=== PATIENT | male | born 1940 | race Caucasian/White ===

== ENCOUNTER → 2017-01-25 | Outpatient (CLI) | payer OTHER, MEDICARE ==
[~2017-01-25] MED LIST: ASPEC81 PO; ATOR-26 PO; CHOL100010 PO; CRG25 PO; FINA5TAB PO; FURO80TA63 PO; INSUINJ4 SC; ISOS30TA3 PO; LISI-729 PO; NTRGSL/4 UT; NVLGI SC; POTA-335 PO; WARF5TAB7 PO
[2017-01-25 17:52] LABS: ALT/SGPT 17 U/L (12-78); BLOOD UREA NITROGEN 24 mg/dl (7-18); BUN/CREATININE RATIO 17.4 (10-20); CALCIUM 8.7 mg/dl (8.5-10.1); CARBON DIOXIDE 22 mmol/L (21-32); CHLORIDE 106 mmol/L (98-107); GLUCOSE 211 mg/dl (70-99); POTASSIUM 4.1 mmol/L (3.5-5.1); SODIUM 138 mmol/L (136-145)
[2017-01-25 17:55] LABS: ALB/GLOB RATIO 0.9 (0.9-2); ALKALINE PHOSPHATASE 110 U/L (45-117); AST/SGOT 13 U/L (15-37)
[2017-01-26 06:05] LABS: ESTIMATED AVERAGE GLUCOSE 177 mg/dl; HA1C FLAG Normal (Normal)
== END | disposition home or self-care (01) ==
LOC: C.LABPVFM 11:38
PROVIDERS: ATTEND Family Medicine
DX: N18.3 Chronic kidney disease, stage 3 (moderate) (principal); E21.3 Hyperparathyroidism, unspecified; E11.29 Type 2 diabetes mellitus with other diabetic kidney complication; I48.2 Chronic atrial fibrillation; E11.22 Type 2 diabetes mellitus with diabetic chronic kidney disease

== ENCOUNTER → 2017-05-06 | Outpatient (CLI) | payer OTHER, MEDICARE ==
[2017-05-06 13:40] LABS: ESTIMATED AVERAGE GLUCOSE 169 mg/dl; HA1C FLAG Normal (Normal)
[2017-05-06 13:52] LABS: ALT/SGPT 18 U/L (12-78); BLOOD UREA NITROGEN 27 mg/dl (7-18); BUN/CREATININE RATIO 17.9 (10-20); CARBON DIOXIDE 25 mmol/L (21-32); CHLORIDE 109 mmol/L (98-107); GLUCOSE 147 mg/dl (70-99); POTASSIUM 4.2 mmol/L (3.5-5.1); SODIUM 143 mmol/L (136-145)
[2017-05-06 13:53] LABS: ALB/GLOB RATIO 0.9 (0.9-2); ALKALINE PHOSPHATASE 105 U/L (45-117); AST/SGOT 14 U/L (15-37)
[2017-05-06 14:52] LABS: CALCIUM 9.1 mg/dl (8.5-10.1)
== END | disposition home or self-care (01) ==
LOC: C.LABPVFM 13:48
PROVIDERS: ATTEND Family Medicine
DX: I12.9 Hypertensive chronic kidney disease with stage 1 through stage 4 chronic kidney disease, or unspecified chronic kidney disease (principal); E78.5 Hyperlipidemia, unspecified; E11.9 Type 2 diabetes mellitus without complications; I48.2 Chronic atrial fibrillation; N18.9 Chronic kidney disease, unspecified; E21.3 Hyperparathyroidism, unspecified

== ENCOUNTER → 2017-11-01 | Outpatient (CLI) | payer OTHER, MEDICARE ==
[2017-11-01 17:59] LABS: ALT/SGPT 19 U/L (12-78); BLOOD UREA NITROGEN 31 mg/dl (7-18); CALCIUM 8.6 mg/dl (8.5-10.1); CARBON DIOXIDE 27 mmol/L (21-32); CHLORIDE 108 mmol/L (98-107); GLUCOSE 137 mg/dl (70-99); POTASSIUM 4.3 mmol/L (3.5-5.1); SODIUM 139 mmol/L (136-145)
[2017-11-01 18:01] LABS: ALB/GLOB RATIO 0.9 (0.9-2); ALKALINE PHOSPHATASE 107 U/L (45-117); AST/SGOT 9 U/L (15-37)
[2017-11-02 06:08] LABS: ESTIMATED AVERAGE GLUCOSE 163 mg/dl; HA1C FLAG Normal (Normal)
== END | disposition home or self-care (01) ==
LOC: C.LABPVFM 12:30
PROVIDERS: ATTEND Nurse Practitioner Adult Health
DX: I10 Essential (primary) hypertension (principal); N18.3 Chronic kidney disease, stage 3 (moderate); R80.9 Proteinuria, unspecified; E11.29 Type 2 diabetes mellitus with other diabetic kidney complication; E78.5 Hyperlipidemia, unspecified; I50.9 Heart failure, unspecified; I25.5 Ischemic cardiomyopathy

== ENCOUNTER → 2018-03-20 | Outpatient (CLI) | payer OTHER, MEDICARE ==
[2018-03-20 13:31] LABS: ALBUMIN 3.7 gm/dl (3.4-5.0); ALT/SGPT 19 U/L (12-78); AST/SGOT 12 U/L (15-37); BLOOD UREA NITROGEN 24 mg/dl (7-18); CALCIUM 8.7 mg/dl (8.5-10.1); CARBON DIOXIDE 24 mmol/L (21-32); CREATININE 1.32 mg/dl (0.60-1.40); GLUCOSE 117 mg/dl (70-99); POTASSIUM 4.1 mmol/L (3.5-5.1); SODIUM 141 mmol/L (136-145)
[2018-03-20 13:32] LABS: HEMOGLOBIN A1C 7.1 % (4.5-5.6)
[2018-03-20 13:34] LABS: ALKALINE PHOSPHATASE 108 U/L (45-117); TOTAL PROTEIN 7.6 gm/dl (6.4-8.2)
== END ==
LOC: C.LABPVFM 18:01
PROVIDERS: ATTEND Family Medicine
DX: E78.5 Hyperlipidemia, unspecified (principal); I50.9 Heart failure, unspecified; I48.2 Chronic atrial fibrillation; N18.3 Chronic kidney disease, stage 3 (moderate); E11.29 Type 2 diabetes mellitus with other diabetic kidney complication; E21.3 Hyperparathyroidism, unspecified

== ENCOUNTER 2024-02-29 12:00 | Observation (INO) ==
--- NOTE | 2024-02-29 12:23 | Emergency Department Note ---
Impression & Plan Gout flare, Pacemaker, Right leg pain, Ambulatory dysfunction ED Provider Note NAME: MARNIE TOWNSEND AGE: 83 SEX: M : 1940 ARRIVES VIA: Ambulance INFORMANT: Patient, ED PROVIDER(S): Grupo Mack MD CHIEF COMPLAINT: Leg swelling, foot pain MEDICAL DECISION MAKING: Patient presents due to concern for leg swelling foot pain. IV was established and blood was obtained along with a right foot x-ray and right DVT ultrasound. The patient was ordered pain medication procalcitonin ESR CRP and uric acid also ordered. The patient's blood work showed a normal white count with anemia normal platelet count kidney function unremarkable BSG of 333 CRP and ESR elevated uric acid not elevated. Patient's foot x-ray does not show obvious fracture or dislocation. The patient did receive IV morphine which improved his symptoms and was able to range his foot better. Patient was up for an ambulatory trial but was unsuccessful with ambulation. Given this concern I did speak the on-call hospitalist Sascha Wan PA-C and the patient was admitted by Dr. Ko. Patient does have likely gout. Patient's white count and Pro-Ernesto are normal will defer any antibiotics at this time. DVT ultrasound is negative. Discussion w/ other healthcare providers: Sascha Owens PA-C and Dr. Ko Prior /Outside records reviewed: I reviewed a diabetes visit from January 11, 2024 with Kiarra Sandoval patient reportedly had a change from his sensor to doing fingerstick checks. I did review a wellness visit from Dr. Taveras. Patient with a known history of stable chest pain. Patient also with a history of reflux prostate cancer has been on chemo and radiation in the past. Weight is down 33 pounds since May likely secondary to cancer treatments. History of A-fib. Review of the patient's medication list shows that the patient does take the epigastrium patient is on Aldactone Differential diagnosis: Fracture, sprain, strain, subluxation, dislocation, contusion, ligamentous injury, neurovascular, as well as other etiologies were considered. Diagnostics, as interpreted by me: ECG: V paced rhythm rate of 82 wide QRS. Cardiac monitoring: An order was placed for continuous cardiac monitoring. The monitor shows a rate of 85 with paced rhythm. Patient was placed on pulse oximetry Medical decision rules: None Imaging studies: I informally interpreted the patient's foot x-ray does not show obvious fracture or dislocation with formal report to follow. HPI: Patient presents due to concern for right foot pain as well as leg swelling. Patient prefaces the visit today with several weeks ago he was diagnosed with gout and started on medication. The patient has had worsening symptoms ever since the morning to where he can barely bear weight. Patient denies any falls or trauma. The patient has noted some swelling to his right lower extremity. Patient believes that he does take a fluid pill and to take his morning medications. Patient denies any chest pains or shortness of breath no nausea vomiting or diarrhea. Patient states that his pain is significant and constant and is diffuse over the right foot but has noticed some redness to the heel. Patient did not take nothing for pain this morning. PAST MEDICAL HISTORY: See Below PAST SURGICAL HISTORY: See Below SOCIAL HISTORY: See Below HOME MEDICATIONS: See Below ALLERGIES: See Below VITALS: See Below PHYSICAL EXAMINATION: GENERAL: NAD, non-toxic. Hearing aid noted in right ear. EYE EXAM: Normal conjunctiva. PERRL, no anisocoria and EOM's grossly intact w/o pain. OROPHARYNX: Moist mucus membranes, grossly normal dentition. NECK: Trachea midline, no stridor. Chest: Device noted in left chest. LUNGS: Clear to auscultation. Normal chest wall mechanics. HEART: NSR, no MRG. ABDOMEN: Abdomen soft, non-tender, no masses, no rebound or guarding. BACK: No CVA TTP. SKIN: No rashes and no bruising. UPPER EXTREMITIES: Upper extremities are grossly normal. LOWER EXTREMITIES: Grossly normal, right greater than left lower extremity edema with redness noted to the right medial foot. NEURO EXAM: A&O x3, cranial nerves II-XII grossly intact, normal speech, moves all 4 extremities. Past Med/Surg History Medical History Elevated PSA Hx of sigmoidoscopy Rectal malignant neoplasm Dehydration Dyspnea Surgical History Hx of tonsillectomy History of surgery Revision of colostomy with repair paracolostomy hernia Hx of appendectomy History of cystoscopy Hx of cardiac cath History of cataract surgery Bilateral Coronary angioplasty status H/O colonoscopy History of cholecystectomy History of adenoidectomy History of partial colectomy History of PTCA History of transurethral resection of prostate History of coronary artery stent placement Family History Sister Coronary heart disease Diabetes Mother , 58yo Medical history unknown Brother Prostate cancer Father , 59yo of unknown cause Sister Myocardial infarction Sister Myocardial infarction Diabetes Brother Electrocution Son Mononucleosis Complications of mono Denies family history of Ovarian cancer Breast cancer Colorectal cancer Social History Smoking Status: Unknown if ever smoked Second Hand Exposure: No; Do You Dip or Chew Tobacco: No; Hx Alcohol Use: No Hx Substance Use: No Preferred Language: Japanese Communication Ability: Effective Visual Impairment: Limited Hearing Ability: Use of Hearing Aid Whipper Required: No Beliefs That Will Affect Care: None marital status: Current Living Situation: Alone current occupational status: retired current occupation: [employer] How many Children do You have: 0 Other Information That Helps Us Care for You: No Feels Safe at Home: Yes Safety Concerns: Feels Safe At This Time Childhood Exposure to Second-Hand Smoke: No Diet: regular caffeine: No during the past year weight has: remained stable Dental Care, Regularly: No Physical Activity Frequency: Does not Exercise Seatbelt Use: sometimes Sunscreen Use: No Gender Identity: Male Assistive Devices: Raised Toilet Seat, Stair Lift and Walker Allergies Allergies Allergy/AdvReac Type Severity Reaction Status Date / Time amiodarone AdvReac Unknown NIGHTMARES Verified 02/29/24 17:31 AND AWAKEN WITH CHEST POUNDING Home Meds Home Medications Medication Instructions Recorded Confirmed atorvastatin 80 mg tablet 80 mg PO DAILY 10/07/18 02/29/24 carvedilol 25 mg tablet 25 mg PO BID 10/07/18 02/29/24 finasteride 5 mg tablet 5 mg PO DAILY 10/07/18 02/29/24 furosemide 80 mg tablet (Lasix) 80 mg PO DAILY 10/07/18 02/29/24 insulin aspart U-100 100 unit/mL See Rx Instructions subcut TID PRN 01/02/20 02/29/24 subcutaneous solution (Novolog sliding scale U-100 Insulin aspart) isosorbide mononitrate 30 mg 60 mg PO DAILY 05/01/21 02/29/24 tablet,extended release 24 hr insulin glargine 100 unit/mL 35 unit subcut HS 06/02/23 02/29/24 subcutaneous solution (Lantus U-100 Insulin) dabigatran etexilate 150 mg capsule 150 mg PO BID 11/11/23 02/29/24 ferrous sulfate 325 mg (65 mg 325 mg PO DAILY 11/11/23 02/29/24 iron) tablet (Iron (ferrous sulfate)) lisinopril 5 mg tablet 2.5 mg PO DAILY 11/11/23 02/29/24 nitroglycerin 0.4 mg sublingual 0.4 mg sublingual UD 11/11/23 02/29/24 tablet (Nitrostat) potassium chloride 20 mEq 20 meq PO BID 11/11/23 02/29/24 tablet,extended release(part/cryst) (Klor-Con M) psyllium husk 0.4 gram capsule 0.4 g PO DAILY PRN Constipation 11/18/23 02/29/24 (Metamucil) enzalutamide 40 mg capsule (Xtandi) 160 mg PO DAILY 12/14/23 03/01/24 allopurinol 100 mg tablet 100 mg PO DAILY 02/29/24 02/29/24 dabigatran etexilate 150 mg capsule 150 mg PO Q12 02/29/24 02/29/24 folic acid 1 mg tablet 1 mg PO DAILY 02/29/24 02/29/24 Previous Rx's Medication Instructions Recorded calcitriol 0.5 mcg capsule 0.5 mcg PO DAILY #90 caps 07/30/20 calcium carbonate 600 mg PO DAILY #1 tab 01/12/21 spironolactone 25 mg tablet 25 mg PO DAILY #90 tabs 11/18/23 famotidine 40 mg tablet 40 mg PO BID PRN GERD #60 tabs 12/14/23 Results & Data (ED) Vital Signs Vital Signs - 24 hr 02/29/24 12:06 Temperature 36.5 C Temperature Source Oral Pulse Rate 81 Pulse Rhythm Regular Pulse Strength Normal Respiratory Rate 18 Respiratory Effort / Characteristics Non-Labored Spontaneous Respiratory Depth Normal Respiratory Pattern Regular Blood Pressure 143/81 H Blood Pressure Mean 101 Blood Pressure Position Lying Pulse Oximetry 98 Oxygen Delivery Method Room Air Sepsis Recent Fever Within 48 Hours No Sepsis New/Unexplained Change in Mental Status No Sepsis Action Taken by Nursing No Action Required Home Medications Current Medication List: was personally reviewed by me Laboratory Data Attestation: I reviewed the patient's lab results. 02/29/24 12:43 03/01/24 09:31 Lab Results 02/29/24 Range/Units 12:43 WBC 6.09 (4.8-10.8) K/ul RBC 3.35 L (4.70-6.10) M/uL Hgb 10.1 L (14.0-18.0) g/dl Hct 31.0 L (42.0-52.0) % MCV 92.5 (80.0-100.0) fL MCH 30.1 (25.0-34.0) pg MCHC 32.6 (32.0-36.0) g/dL RDW Std Deviation 49.3 H (36.4-46.3) fL RDW Coeff of Kelly 14.6 H (11.5-14.5) % Plt Count 245 (130-400) K/uL MPV 9.9 (9.4-12.4) fL Immature Gran % (Auto) 0.3 % Neut % (Auto) 77.1 % Lymph % (Auto) 8.2 % [place] % (Auto) 13.1 % Eos % (Auto) 1.0 % Baso % (Auto) 0.3 % Neut # (Auto) 4.69 (1.40-6.50) K/uL Lymph # (Auto) 0.50 L (1.20-3.40) K/uL [place] # (Auto) 0.80 H (0.11-0.59) K/uL Eos # (Auto) 0.06 (0.00-0.50) K/uL Baso # (Auto) 0.02 (0.00-0.20) K/uL Immature Gran # (Auto) 0.02 (0.01-0.20) K/uL ESR 66 H (0-20) mm/hr Sodium 136 (136-145) mmol/L Potassium 4.5 (3.5-5.1) mmol/L Chloride 105 (98-107) mmol/L Carbon Dioxide 24 (21-32) mmol/L Anion Gap 7 (3-11) BUN 19 (6-23) mg/dl Creatinine 0.98 (0.6-1.4) mg/dl Est Cr Clr Drug Dosing 59.4 ml/min Est GFR ( Amer) 81.2 ml/min Est GFR (Non-Af Amer) 70.0 ml/min BUN/Creatinine Ratio 19.4 (10-20) Glucose 333 H* (70-99(Fasting)) mg/dl Uric Acid 4.7 (2.6-7.2) mg/dl Calcium 8.9 (8.6-10.3) mg/dl Total Bilirubin 1.9 H (0.2-1.0) mg/dl AST 9 L (13-39) U/L ALT 7 (7-52) U/L Alkaline Phosphatase 70 (34-104) U/L C-Reactive Protein 9.52 H (0-0.5) mg/dl Total Protein 6.8 (6.0-8.3) gm/dl Albumin 3.4 (3.4-5.0) gm/dl Globulin 3.4 (2.5-4.0) gm/dl Albumin/Globulin Ratio 1.0 (0.9-2) Procalcitonin 0.11 (0-0.5) ng/ml TSH 1.427 (0.300-4.500) uIu/ml Administered Medications Acetaminophen (Acetaminophen 325 Mg Tab) 650 mg PO Q6H REKHA Stop: 03/30/24 21:59 Last Admin: 03/01/24 09:50 Dose: 650 mg Documented By: Admin: 03/01/24 05:56 Dose: 650 mg Documented By: Admin: 02/29/24 22:45 Dose: 650 mg Documented By: RAMILA Atorvastatin Calcium (Atorvastatin 40 Mg Tab) 80 mg PO DAILY REKHA Stop: 03/31/24 08:59 Last Admin: 03/01/24 09:37 Dose: 80 mg Documented By: [facility] Calcitriol (Calcitriol 0.25 Mcg Capsule) 0.5 mcg PO DAILY REKHA Stop: 03/31/24 08:59 Last Admin: 03/01/24 09:34 Dose: 0.5 mcg Documented By: [facility] Calcium Carbonate (Calcium Carbonate 1250mg Tab) 1,250 mg PO DAILY REKHA Stop: 03/31/24 08:59 Last Admin: 03/01/24 09:35 Dose: 1,250 mg Documented By: KATIE Calcium Carbonate (Calcium Carbonate 500 Mg Chewable Tab) 500 mg PO Q4H PRN PRN Reason: Indigestion Stop: 03/31/24 10:41 Last Admin: 03/01/24 11:34 Dose: 500 mg Documented By: KATIE Carvedilol (Carvedilol 25 Mg Tab) 25 mg PO BID REKHA Stop: 03/30/24 20:59 Last Admin: 03/01/24 09:35 Dose: 25 mg Documented By: Admin: 02/29/24 20:19 Dose: 25 mg Documented By: AVELINO Colchicine (Colchicine 0.6 Mg Tab) 0.6 mg PO TID REKHA Stop: 03/31/24 10:29 Last Admin: 03/01/24 13:21 Dose: 0.6 mg Documented By: Admin: 03/01/24 11:32 Dose: 0.6 mg Documented By: KATIE Dabigatran (Dabigatran Etexilate 75 Mg Cap) 150 mg PO Q12 REKHA Stop: 03/30/24 20:59 Last Admin: 03/01/24 09:35 Dose: 150 mg Documented By: Admin: 02/29/24 20:19 Dose: 150 mg Documented By: AVELINO Ferrous Sulfate (Ferrous Sulfate 325 Mg Tab) 325 mg PO DAILY REKHA Stop: 03/31/24 08:59 Last Admin: 03/01/24 09:35 Dose: 325 mg Documented By: KATIE Finasteride (Finasteride 5 Mg Tab) 5 mg PO DAILY REKHA Stop: 03/31/24 08:59 Last Admin: 03/01/24 09:33 Dose: 5 mg Documented By: KATIE Folic Acid (Folic Acid 1 Mg Tab) 1 mg PO DAILY REKHA Stop: 03/31/24 08:59 Last Admin: 03/01/24 09:34 Dose: 1 mg Documented By: KATIE Furosemide (Furosemide 80 Mg Tab) 80 mg PO DAILY REKHA Stop: 03/31/24 08:59 Last Admin: 03/01/24 09:37 Dose: 80 mg Documented By: KATIE Insulin Aspart (Insulin Aspart Per Unit Charge) 0 units SC ACHS REKHA Stop: 03/30/24 16:29 Last Admin: 03/01/24 12:13 Dose: 4 units Documented By: KATIE Co-signed By: DM Admin: 03/01/24 09:06 Dose: 3 units Documented By: KATIE Co-signed By: DEB Admin: 02/29/24 20:20 Dose: 4 units Documented By: AVELINO Co-signed By: DENNISE Admin: 02/29/24 19:21 Dose: Not Given Documented By: AVELINO Insulin Glargine (Lantus Per Unit Charge) 15 units SQ BID REKHA Stop: 03/30/24 20:59 Last Admin: 03/01/24 09:06 Dose: 15 units Documented By: KATIE Co-signed By: DEB Admin: 02/29/24 20:19 Dose: 15 units Documented By: AVELINO Co-signed By: DENNISE Isosorbide Mononitrate (Isosorbide [place] Extended Rel 60 Mg Tabcr) 60 mg PO DAILY REKHA Stop: 03/31/24 08:59 Last Admin: 03/01/24 09:34 Dose: 60 mg Documented By: KATIE Lisinopril (Lisinopril 2.5 Mg Tab) 2.5 mg PO DAILY REKHA Stop: 03/31/24 08:59 Last Admin: 03/01/24 09:34 Dose: 2.5 mg Documented By: KATIE Pantoprazole Sodium (Pantoprazole 40 Mg Tab) 40 mg PO DAILY REKHA Stop: 03/31/24 08:59 Last Admin: 03/01/24 08:46 Dose: 40 mg Documented By: KATIE Potassium Chloride (Potassium Chloride Crtab 20 Meq Tabcr) 20 meq PO BID REKHA Stop: 03/30/24 20:59 Last Admin: 03/01/24 09:36 Dose: 20 meq Documented By: Admin: 02/29/24 20:19 Dose: 20 meq Documented By: AVELINO Prednisone (Prednisone 10 Mg Tablet) 10 mg PO TID REKHA Stop: 03/31/24 09:29 Last Admin: 03/01/24 13:22 Dose: 10 mg Documented By: Admin: 03/01/24 09:50 Dose: 10 mg Documented By: KATIE Spironolactone (Spironolactone 25 Mg Tab) 25 mg PO DAILY REKHA Stop: 03/31/24 08:59 Last Admin: 03/01/24 09:36 Dose: 25 mg Documented By: KATIE Discontinued Medications Acetaminophen (Acetaminophen 325 Mg Tab) 650 mg PO NOW STA Stop: 02/29/24 16:23 Last Admin: 02/29/24 19:21 Dose: Not Given Documented By: AVELINO Colchicine (Colchicine 0.6 Mg Tab) 1.2 mg PO NOW ONE Stop: 02/29/24 16:16 Last Admin: 02/29/24 17:02 Dose: 1.2 mg Documented By: JEFF Colchicine (Colchicine 0.6 Mg Tab) 0.6 mg PO BID REKHA Stop: 03/30/24 21:40 Last Admin: 02/29/24 22:45 Dose: 0.6 mg Documented By: RAMILA Enzalutamide (Pt Own Med - Enzalutamide) 3 each PO Q24H REKHA Stop: 03/31/24 11:59 Last Admin: 03/01/24 12:11 Dose: 3 each Documented By: KATIE Co-signed By: DIANE Enzalutamide (Pt Own Med - Enzalutamide) 1 each PO ONE ONE Stop: 03/01/24 13:01 Last Admin: 03/01/24 13:21 Dose: 1 each Documented By: KATIE Co-signed By: DIANE Furosemide (Furosemide 40 Mg/4 Ml Vial) 40 mg IV ONE ONE Stop: 02/29/24 19:05 Last Admin: 02/29/24 19:35 Dose: 40 mg Documented By: AVELINO Morphine Sulfate (Morphine Sulfate 4 Mg/Ml 1 Ml Carp\Vial) 4 mg IV NOW STA Stop: 02/29/24 14:25 Last Admin: 02/29/24 14:38 Dose: 4 mg Documented By: ADRIEL Naproxen (Naproxen 250 Mg Tab) 250 mg PO NOW STA Stop: 02/29/24 16:18 Last Admin: 02/29/24 17:02 Dose: 250 mg Documented By: JEFF Naproxen (Naproxen 250 Mg Tab) 250 mg PO BID REKHA Stop: 03/03/24 21:40 Last Admin: 02/29/24 22:46 Dose: 250 mg Documented By: RAMILA Non-Formulary Medication (Enzalutamide [Xtandi]) 80 mg PO DAILY REKHA Stop: 03/31/24 08:59 Last Admin: 03/01/24 09:51 Dose: Not Given Documented By: KATIE Pantoprazole Sodium (Pantoprazole 40 Mg Tab) 40 mg PO NOW STA Stop: 02/29/24 16:18 Last Admin: 02/29/24 17:02 Dose: 40 mg Documented By: JEFF Imaging Data Radiologist's Impression: Chest X-Ray 02/29/24 12:28 XR chest 1V portable HISTORY: 83 years-old Male weakness acute weakness COMPARISON: PET/CT 02/23/2024 TECHNIQUE: AP view of the chest FINDINGS: Cardiac silhouette is enlarged. Left subclavian pacer/AICD. Coronary arterial stent. No pneumothorax, pleural effusion or overt pulmonary edema. Mild linear subsegmental left basilar atelectasis versus scarring. Bones appear grossly intact. IMPRESSION: Cardiomegaly without acute process. ACT 112: Negative or not required by law. The above report was generated using voice recognition software. It may contain grammatical, syntax or spelling errors. Electronically signed by: Phani Ortiz M.D. 02/29/2024 2:52 PM Foot X-Ray 02/29/24 12:28 RIGHT FOOT 2 VIEWS CLINICAL HISTORY: Right foot pain and erythema. FINDINGS: AP and lateral views of the right foot are obtained. No prior studies are available for comparison at the time of dictation. The skeletal structures are osteopenic. No fracture is seen. No erosive disease is identified. There is a small plantar heel spur. Mild osteoarthritic change is noted throughout the foot, greatest at the first metatarsophalangeal joint. There is a high arch. An os navicularis is incidentally noted. Soft tissue edema is seen throughout the foot. There is advanced atherosclerotic calcification of the regional arteries. IMPRESSION: 1. Soft tissue edema with no acute bony abnormality identified. 2. Osteopenia and degenerative change as above. Dictated: 02/29/2024 2:28 PM Transcribed: 02/29/2024 2:41 PM Paul [id number] [email or web address] [id number] Electronically signed by: Maynor Alvarado M.D. 02/29/2024 2:42 PM Venous Doppler Study 02/29/24 12:28 US venous doppler LE RT HISTORY: 83 years-old Male RLE pain/swelling; h/o cancer acute pain and swelling of the right lower leg COMPARISON: None TECHNIQUE: Multiple real-time sonographic images of the right lower extremity deep venous structures were obtained assessing grayscale appearance, color and spectral flow. FINDINGS: Normal flow, compressibility, phasicity and augmentation. Subcutaneous edema. IMPRESSION: No sonographic evidence of deep venous thrombosis. ACT 112: Negative or not required by law. The above report was generated using voice recognition software. It may contain grammatical, syntax or spelling errors. Electronically signed by: Phani Ortiz M.D. 02/29/2024 1:42 PM Discharge Plan Visit Data Chief Complaint: Leg Injury/Pain Stated Complaint: LEG PAIN ED Provider: Grupo Mack Discharge Problem: Gout flare, Pacemaker, Right leg pain, Ambulatory dysfunction Patient Disposition: Admitted As Inpatient Discharge Instructions Interventions: ED Discharge Assessment Last Done: 02/29/24 20:45 Discharge Problem: Gout flare Qualifiers: Gout site: foot Gout etiology: unspecified cause Laterality: right Qualified Code(s): M10.9 - Gout, unspecified
[2024-02-29 13:07] LABS: Basophils # (auto) 0.02 K/uL (0.00-0.20); Basophils % (auto) 0.3 %; Eosinophils # (auto) 0.06 K/uL (0.00-0.50); Hemoglobin 10.1 g/dl (14.0-18.0); Immature Granulocytes # (auto) 0.02 K/uL (0.01-0.20); Immature Granulocytes % (auto) 0.3 %; Lymphocytes % (auto) 8.2 %; Mean Corpuscular Hemoglobin 30.1 pg (25.0-34.0); Mean Corpuscular Hgb Conc 32.6 g/dL (32.0-36.0); Mean Corpuscular Volume 92.5 fL (80.0-100.0); Mean Platelet Volume 9.9 fL (9.4-12.4); Monocytes % (auto) 13.1 %; Neutrophils # (auto) 4.69 K/uL (1.40-6.50); Neutrophils % (auto) 77.1 %; Platelet Count 245 K/uL (130-400); RDW Coefficient of Variation 14.6 % (11.5-14.5); RDW Standard Deviation 49.3 fL (36.4-46.3); Red Blood Count 3.35 M/uL (4.70-6.10); White Blood Count 6.09 K/ul (4.8-10.8)
[2024-02-29 13:29] LABS: Albumin Level 3.4 gm/dl (3.4-5.0); BUN Creatinine Ratio 19.4 (10-20); Bilirubin,Total 1.9 mg/dl (0.2-1.0); C Reactive Protein 9.52 mg/dl (0-0.5); Calcium 8.9 mg/dl (8.6-10.3); Creatinine Clr Calc Pharmacy 59.4 ml/min; Est GFR (African American) 81.2 ml/min; Globulin 3.4 gm/dl (2.5-4.0); Potassium 4.5 mmol/L (3.5-5.1); Total Protein 6.8 gm/dl (6.0-8.3); Uric Acid 4.7 mg/dl (2.6-7.2)
[2024-02-29 13:34] LABS: Thyroid Stimulating Hormone 1.427 uIu/ml (0.300-4.500)
--- NOTE | 2024-02-29 13:44 | Ultrasound Report ---
US venous doppler LE RT HISTORY: 83 years-old Male RLE pain/swelling; h/o cancer acute pain and swelling of the right lower leg COMPARISON: None TECHNIQUE: Multiple real-time sonographic images of the right lower extremity deep venous structures were obtained assessing grayscale appearance, color and spectral flow. FINDINGS: Normal flow, compressibility, phasicity and augmentation. Subcutaneous edema. IMPRESSION: No sonographic evidence of deep venous thrombosis. ACT 112: Negative or not required by law. The above report was generated using voice recognition software. It may contain grammatical, syntax o r spelling errors. Electronically signed by: Phani Ortiz M.D. 02/29/2024 1:42 PM
[2024-02-29] MEDS: MoRPHine SULFATE 4 MG/ML 1 ML CARP\\VIAL IV STA (14:38)
--- NOTE | 2024-02-29 14:43 | XRay Report ---
RIGHT FOOT 2 VIEWS CLINICAL HISTORY: Right foot pain and erythema. FINDINGS: AP and lateral views of the right foot are obtained. No prior studies are available for taylor rosales at the time of dictation. The skeletal structures are osteopenic. No fracture is seen. No ero sive disease is identified. There is a small plantar heel spur. Mild osteoarthritic change is noted t hroughout the foot, greatest at the first metatarsophalangeal joint. There is a high arch. An os alva cularis is incidentally noted. Soft tissue edema is seen throughout the foot. There is advanced ather osclerotic calcification of the regional arteries. IMPRESSION: 1. Soft tissue edema with no acute bony abnormality identified. 2. Osteopenia and degenerative change as above. Dictated: 02/29/2024 2:28 PM Transcribed: 02/29/2024 2:41 PM Paul [id number] [email or web address] [id number] Electronically signed by: Maynor Alvarado M.D. 02/29/2024 2:42 PM
--- NOTE | 2024-02-29 14:53 | XRay Report ---
XR chest 1V portable HISTORY: 83 years-old Male weakness acute weakness COMPARISON: PET/CT 02/23/2024 TECHNIQUE: AP view of the chest FINDINGS: Cardiac silhouette is enlarged. Left subclavian pacer/AICD. Coronary arterial stent. No pneumothorax, pleural effusion or overt pulmonary edema. Mild linear subsegmental left basilar atelectasis versus scarring. Bones appear grossly intact. IMPRESSION: Cardiomegaly without acute process. ACT 112: Negative or not required by law. The above report was generated using voice recognition software. It may contain grammatical, syntax o r spelling errors. Electronically signed by: Phani Ortiz M.D. 02/29/2024 2:52 PM
--- NOTE | 2024-02-29 15:47 | History & Physical Report ---
Date of Service February 29, 2024 Assessment & Plan (1) Gout flare: Plan: -Admit to med/surge -Currently stable and non-toxic appearing -Presented to the ED with ongoing swelling/pain of the right foot/ankle with progression into the right knee -Was seen by his Marine Oiler last month for right foot pain/swelling/erythema >Completed a 10 day course of Keflex for Cellulitis, this has subsequently resolved >Unfortunately the patient was only started on Allopurinol for his gout flare, this would be ineffective for acute flares -WBC and procal are WNL -Venous doppler negative for DVT, xray of the right foot shows soft tissue swelling -Will start the patient on a loading dose of 1.2 mg Colchicine followed by 0.6 mg BID -Will give 3 days of 250 mg PO Naproxen as well -Naproxen and scheduled tylenol for pain -Start 40 mg PO pantoprazole daily on admission for stress ulcer PPX -Continue home Pradaxa for DVT PPX -HH/DMII diet -AM CBC, BMP, mag, PT/INR (2) Right leg pain: Plan: -See gout flare (3) Ambulatory dysfunction: Plan: -Will order PT/OT consults -Fall precautions with bed alarm ordered (4) Prostate cancer metastatic to bone: Plan: -Patient's niece will be brining in his Xtandi -Conitnue daily (5) Type 2 DM with CKD stage 3 and hypertension: Plan: -Initially noted to have a BSG of 33 on arrival -Repeat BSG on admission is 269 -Will monitor BSG ACHS, goal is 110-160 -Normally takes 35 units lantus HS, will convert to 15 units BID for now -Start CF of 50 and CR 15 for now -Adjust regimen as needed (6) Ischemic cardiomyopathy: Plan: -Euvolemic on exam -Continue Imdur, spironolactone, andlasix (7) CAD (coronary artery disease): Plan: -Continue statin (8) Atrial fibrillation, permanent: Plan: -Stable -Continue Pradaxa -Continue Carvedilol (9) BPH (benign prostatic hyperplasia): Plan: -Continue Finasteride -Monitor for urinary retention Plan The patient was discussed with Dr. Ko at the time of the admission History of Present Illness Chief Complaint: right foot pain, ambulatory dysfunction Primary Care Provider: Jason Taveras DO James is an 83 year old male with a PMH significant for afib (on Pradaxa), DMII, stage 3 CKD, colon cancern S/P LAR in 2013, prostate cancer with metastases to the bone (on Xtandi), CAD, ischemic cardiomyopathy, S/P Biventricular ICD placement, S/P pacemaker placement and ICD removal at patient's request, HFrEF (LVEF of 30-35%), severe pulmonary HTN, and BPH, who presented to the [facility] ED on 02/29/24 with complaints of right foot pain. He remained stable in the ED. Labs were significant for an ESR of 66, CRP of 9.5, glucose of 333, with procal, uric acid level, and WBC WNL. Xray of the right foot was read as "1. Soft tissue edema with no acute bony abnormality identified. 2. Osteopenia and degenerative change as above.". Venous doppler of the RLE and CXR were read as negative for acute findings. The patient was initially given 4 mg IV morphine for pain thought to be due to a gout flare. Patient was unable to safely ambulate while in the ED and lives alone. We were asked to admit the patient for ambulatory dysfunction due to right foot pain. At the time of the exam the patient was sitting on the side of his bed in no acute distress, history was obtained from the patient and his Niece (Tracy Hines [phone]) who we called during the exam. They explain that the patient was seen by his Marine Oiler approximately 1 month ago for right foot pain/swelling. The patient's niece confirms that the patient was started on both Allopurinol and a 10 day course of Keflex as they were concerned for both gout flare and cellulitis. The patient completed the course of Keflex and the cellulitis resolved. However, he has had ongoing pain/swelling in the right foot and now moving into the right knee. He has been having ongoing ambulatory dysfunction due to pain and swelling. The patient explains that his glucose is up because he took a lower dose of his lantus this am to prevent hypoglycemia since he was coming to the ED. He and his Niece confirm that the patient is a DNR/DNI. Please refer to Dr. Ko's attestation for any changes to the treatment plan Allergies Allergy/AdvReac Type Severity Reaction Status Date / Time amiodarone AdvReac Unknown NIGHTMARES Verified 02/29/24 17:31 AND AWAKEN WITH CHEST POUNDING Home Medications Medication Instructions Recorded Confirmed Type atorvastatin 80 mg tablet 80 mg PO DAILY 10/07/18 02/29/24 History carvedilol 25 mg tablet 25 mg PO BID 10/07/18 02/29/24 History finasteride 5 mg tablet 5 mg PO DAILY 10/07/18 02/29/24 History furosemide 80 mg tablet (Lasix) 80 mg PO DAILY 10/07/18 02/29/24 History insulin aspart U-100 100 unit/mL See Rx Instructions subcut TID PRN 01/02/20 02/29/24 History subcutaneous solution (Novolog sliding scale U-100 Insulin aspart) calcitriol 0.5 mcg capsule 0.5 mcg PO DAILY #90 caps 07/30/20 02/29/24 Rx calcium carbonate 600 mg PO DAILY #1 tab 01/12/21 02/29/24 Rx isosorbide mononitrate 30 mg 60 mg PO DAILY 05/01/21 02/29/24 History tablet,extended release 24 hr insulin glargine 100 unit/mL 35 unit subcut HS 06/02/23 02/29/24 History subcutaneous solution (Lantus U-100 Insulin) dabigatran etexilate 150 mg capsule 150 mg PO BID 11/11/23 02/29/24 History ferrous sulfate 325 mg (65 mg 325 mg PO DAILY 11/11/23 02/29/24 History iron) tablet (Iron (ferrous sulfate)) lisinopril 5 mg tablet 2.5 mg PO DAILY 11/11/23 02/29/24 History nitroglycerin 0.4 mg sublingual 0.4 mg sublingual UD 11/11/23 02/29/24 History tablet (Nitrostat) potassium chloride 20 mEq 20 meq PO BID 11/11/23 02/29/24 History tablet,extended release(part/cryst) (Klor-Con M) psyllium husk 0.4 gram capsule 0.4 g PO DAILY PRN Constipation 11/18/23 02/29/24 History (Metamucil) spironolactone 25 mg tablet 25 mg PO DAILY #90 tabs 11/18/23 02/29/24 Rx enzalutamide 40 mg capsule (Xtandi) 80 mg PO DAILY 12/14/23 02/29/24 History famotidine 40 mg tablet 40 mg PO BID PRN GERD #60 tabs 12/14/23 02/29/24 Rx allopurinol 100 mg tablet 100 mg PO DAILY 02/29/24 02/29/24 History dabigatran etexilate 150 mg capsule 150 mg PO Q12 02/29/24 02/29/24 History folic acid 1 mg tablet 1 mg PO DAILY 02/29/24 02/29/24 History Past Med/Surg History Medical History (Updated 02/29/24 @ 16:35 by Sascha Owens PA-C) Elevated PSA Hx of sigmoidoscopy Rectal malignant neoplasm Dehydration Dyspnea Surgical History Hx of tonsillectomy History of surgery Revision of colostomy with repair paracolostomy hernia Hx of appendectomy History of cystoscopy Hx of cardiac cath History of cataract surgery Bilateral Coronary angioplasty status H/O colonoscopy History of cholecystectomy History of adenoidectomy History of partial colectomy History of PTCA History of transurethral resection of prostate History of coronary artery stent placement Family History Sister Coronary heart disease Diabetes Mother Medical history unknown Brother Prostate cancer Father of unknown cause Sister Myocardial infarction Sister Myocardial infarction Diabetes Brother Electrocution Son Mononucleosis Denies family history of Ovarian cancer Breast cancer Colorectal cancer Social History (Updated 12/14/23 @ 10:31 by Kiarra Brito LPN) Smoking Status: Unknown if ever smoked Second Hand Exposure: No; Do You Dip or Chew Tobacco: No; Hx Alcohol Use: No Hx Substance Use: No Preferred Language: Georgian Communication Ability: Effective Visual Impairment: Limited Hearing Ability: Use of Hearing Aid Weft Straightener Required: No Beliefs That Will Affect Care: None marital status: Current Living Situation: Alone current occupational status: retired 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 How many Children do You have: 0 Other Information That Helps Us Care for You: No Feels Safe at Home: Yes Safety Concerns: Feels Safe At This Time Childhood Exposure to Second-Hand Smoke: No Diet: regular caffeine: No during the past year weight has: remained stable Dental Care, Regularly: No Physical Activity Frequency: Does not Exercise Seatbelt Use: sometimes Sunscreen Use: No Gender Identity: Male Assistive Devices: Raised Toilet Seat, Stair Lift and Walker Physical Exam 2 Physical Exam: Physical Exam: General: In no acute distress, stated age, well-nourished, non-toxic appearing HEENT: Normocephalic, atraumatic, no scleral icterus, pupils around round, symmetrical, and reactive to light, moist mucus membranes, trachea midline, no thyromegaly Chest/Pulm: No respiratory distress, symmetrical chest expansion, clear breath sounds throughout Cardiac: RRR, 3/4 systolic murmur noted Abdomen: Negative for ascites and bruising, normoactive bowel sounds, soft, non-tender to palpation throughout Musculoskeletal: Patient with swelling and tenderness to palpation of the right foot/ankle and right knee, skin is not cellulitic in appearance to suggest acute infection >See associated pictures Extremities: Radial, dorsalis pedis, and posterior tibial pulses are intact and symmetrical, swelling in the RLE compared to left Skin: See pictures and musculoskeletal exam Neuro: Alert and oriented to person, place, no focal defects, no tremors noted Psych: No acute distress, calm and cooperative during the exam Results & Data Results & Data Vital Signs (Past 12 Hours) Vital Signs Temp Pulse Pulse Resp BP BP Pulse Ox 02/29/24 13:45 78 20 145/101 H 97 02/29/24 12:43 79 02/29/24 12:06 36.5 C 81 18 143/81 H 98 O2 Del Method 02/29/24 13:45 02/29/24 12:43 02/29/24 12:06 Room Air Laboratory Results Abnormal lab results 02/29/24 Range/Units 12:43 RBC 3.35 L (4.70-6.10) M/uL Hgb 10.1 L (14.0-18.0) g/dl Hct 31.0 L (42.0-52.0) % RDW Std Deviation 49.3 H (36.4-46.3) fL RDW Coeff of Kelly 14.6 H (11.5-14.5) % Lymph # (Auto) 0.50 L (1.20-3.40) K/uL [place] # (Auto) 0.80 H (0.11-0.59) K/uL ESR 66 H (0-20) mm/hr Glucose 333 H* (70-99(Fasting)) mg/dl Total Bilirubin 1.9 H (0.2-1.0) mg/dl AST 9 L (13-39) U/L C-Reactive Protein 9.52 H (0-0.5) mg/dl Diagnostic Findings Chest X-Ray 02/29/24 12:28 XR chest 1V portable HISTORY: 83 years-old Male weakness acute weakness COMPARISON: PET/CT 02/23/2024 TECHNIQUE: AP view of the chest FINDINGS: Cardiac silhouette is enlarged. Left subclavian pacer/AICD. Coronary arterial stent. No pneumothorax, pleural effusion or overt pulmonary edema. Mild linear subsegmental left basilar atelectasis versus scarring. Bones appear grossly intact. IMPRESSION: Cardiomegaly without acute process. ACT 112: Negative or not required by law. The above report was generated using voice recognition software. It may contain grammatical, syntax or spelling errors. Electronically signed by: Phani Ortiz M.D. 02/29/2024 2:52 PM Foot X-Ray 02/29/24 12:28 RIGHT FOOT 2 VIEWS CLINICAL HISTORY: Right foot pain and erythema. FINDINGS: AP and lateral views of the right foot are obtained. No prior studies are available for comparison at the time of dictation. The skeletal structures are osteopenic. No fracture is seen. No erosive disease is identified. There is a small plantar heel spur. Mild osteoarthritic change is noted throughout the foot, greatest at the first metatarsophalangeal joint. There is a high arch. An os navicularis is incidentally noted. Soft tissue edema is seen throughout the foot. There is advanced atherosclerotic calcification of the regional arteries. IMPRESSION: 1. Soft tissue edema with no acute bony abnormality identified. 2. Osteopenia and degenerative change as above. Dictated: 02/29/2024 2:28 PM Transcribed: 02/29/2024 2:41 PM Paul [id number] [email or web address] [id number] Electronically signed by: Maynor Alvarado M.D. 02/29/2024 2:42 PM Venous Doppler Study 02/29/24 12:28 US venous doppler LE RT HISTORY: 83 years-old Male RLE pain/swelling; h/o cancer acute pain and swelling of the right lower leg COMPARISON: None TECHNIQUE: Multiple real-time sonographic images of the right lower extremity deep venous structures were obtained assessing grayscale appearance, color and spectral flow. FINDINGS: Normal flow, compressibility, phasicity and augmentation. Subcutaneous edema. IMPRESSION: No sonographic evidence of deep venous thrombosis. ACT 112: Negative or not required by law. The above report was generated using voice recognition software. It may contain grammatical, syntax or spelling errors. Electronically signed by: Phani Ortiz M.D. 02/29/2024 1:42 PM ECG Additional Comments: Ventricular-paced rhythm Abnormal ECG When compared with ECG of 25-OCT-2023 15:18, Vent. rate has increased BY 20 BPM Code Status & VTE Plan Code Status DNR/DNI VTE Prophylaxis Plan VTE Prophylaxis will be ordered: Yes Supervising Physician Co-Signing Physician Notes I personally saw and examined the patient. I verified all friedman points and agree with Sascha Owens PA-C with the following exceptions and/or additions: 83 year old male presents to the ER with right lower extremity swelling with pain in ankle and knee. He is unsure how long this has been going on however his nuclear control room operator has been giving intermittent antibiotics and regular allopurinol since December. He comes in today as he can no longer walk on his ankle it is too painful. DVT ruled out with US venous doppler in the ER. O/E HS RRR, no murmurs, Chest CTAB, Abdo SNT, R(2+)>L(1+) pitting edema, mild knee effusion, extensive ankle effusion A/P Gout flare - colchicine + naproxen Given b/l leg edema and known heart failure will give one off dose of Lasix to see if this improves overnight. No obstructive cause noted on recent PET/CT to explain right > left swelling and US venous doppler negative for DVT. PG Care Time/CCT Total # of Minutes Spent Total Time Spent with Patient: Total time spent is greater than 50% in coordination of care (as documented) at patient's floor/unit and/or counseling patient: Coding [place] [address] INT INP/OBS CARE 3/75MIN Patient Type Established Medical Decision Making High Complexity Diagnoses Gout flare M10.9 Right leg pain M79.604 Ambulatory dysfunction R26.2 Prostate cancer metastatic to bone C61; C79.51 Type 2 DM with CKD stage 3 and hypertension E11.22; I12.9; N18.3 Ischemic cardiomyopathy I25.5 Coronary artery disease involving [place] coronary artery of [place] heart without angina pectoris I25.10 Associated angina: without angina Coronary Disease-Associated Artery/Lesion type: [place] artery [place] vs. transplanted heart: [place] heart Atrial fibrillation, permanent I48.21 BPH (benign prostatic hyperplasia) N40.0 (7) CAD (coronary artery disease) Associated angina: without angina Coronary Disease-Associated Artery/Lesion type: [place] artery [place] vs. transplanted heart: [place] heart Qualified Code(s): I25.10 - Atherosclerotic heart disease of [place] coronary artery without angina pectoris
[2024-02-29] MEDS ORDERED: GLUCOSE 40% GEL 15 GM TUBE PO PRN (15:49)
[2024-02-29] MEDS ORDERED: GLUCAGON FOR INJ 1 MG VIAL SQ PRN (15:49)
[2024-02-29] MEDS ORDERED: GLUCOSE 10 TAB/TUBE PO PRN (15:49)
[2024-02-29] MEDS ORDERED: CARBOHYDRATES FOR HYPOGLYCEMIA PO PRN (15:49)
[2024-02-29] MEDS ORDERED: DEXTROSE 50% 50 ML SYRINGE IV PRN (15:49)
[2024-02-29] MEDS: PANTOprazole 40 MG TAB PO STA (17:02)
[2024-02-29] MEDS: NAPROXEN 250 MG TAB PO STA (17:02)
[2024-02-29] MEDS: COLCHICINE 0.6 MG TAB PO ONE (17:02)
[2024-02-29 17:31] LABS: Appearance Urine Clear (Clear); Bacteria Urine Automated Negative (Negative); Bilirubin Urine Negative (Negative); Blood Urine Negative (Negative); Color Urine Yellow; Glucose Urine UA 3+ (Negative); Ketones Urine Negative (Negative); Leukocyte Esterase Urine Negative (Negative); Nitrite Urine Negative (Negative); Protein Urine 1+ (Negative); RBC Urine Automated 0-4 /hpf (0-4); Urobilinogen Urine Negative (Negative); pH Urine 5.5 (4.5-7.5)
[2024-02-29] MEDS: ACETAMINOPHEN 325 MG TAB PO STA (19:21)
[2024-02-29] MEDS: INSULIN ASPART PER UNIT CHARGE SC SCH (19:21)
[2024-02-29] MEDS: FUROSEMIDE 40 MG/4 ML VIAL IV ONE (19:35)
[2024-02-29] MEDS: POTASSIUM CHLORIDE CRTAB 20 MEQ TABCR PO SCH (20:19)
[2024-02-29] MEDS: carvediloL 25 MG TAB PO SCH (20:19)
[2024-02-29] MEDS: DABIGATRAN ETEXILATE 75 MG CAP PO SCH (20:19)
[2024-02-29] MEDS: LANTUS PER UNIT CHARGE SQ SCH (20:19)
[2024-02-29] MEDS ORDERED: LANTUS PER UNIT CHARGE SQ SCH (21:00)
[2024-02-29] MEDS: ACETAMINOPHEN 325 MG TAB PO SCH (22:45)
[2024-02-29] MEDS: COLCHICINE 0.6 MG TAB PO SCH (22:45)
[2024-02-29] MEDS: NAPROXEN 250 MG TAB PO SCH (22:46)
[2024-03-01] MEDS: PANTOprazole 40 MG TAB PO SCH (08:46)
[2024-03-01] MEDS ORDERED: allopurinoL 100 MG TAB PO SCH (09:00)
[2024-03-01] MEDS: FINASTERIDE 5 MG TAB PO SCH (09:33)
[2024-03-01] MEDS: CALCITRIOL 0.25 MCG CAPSULE PO SCH (09:34)
[2024-03-01] MEDS: lisinopril 2.5 MG TAB PO SCH (09:34)
[2024-03-01] MEDS: ISOSORBIDE MONO EXTENDED REL 60 MG TABCR PO SCH (09:34)
[2024-03-01] MEDS: FOLIC ACID 1 MG TAB PO SCH (09:34)
[2024-03-01] MEDS: CALCIUM CARBONATE 1250MG TAB PO SCH (09:35)
[2024-03-01] MEDS: FERROUS SULFATE 325 MG TAB PO SCH (09:35)
[2024-03-01] MEDS: SPIRONOLACTONE 25 MG TAB PO SCH (09:36)
[2024-03-01] MEDS: FUROSEMIDE 80 MG TAB PO SCH (09:37)
[2024-03-01] MEDS: ATORVASTATIN 40 MG TAB PO SCH (09:37)
[2024-03-01] MEDS: predniSONE 10 MG TABLET PO SCH (09:50)
[2024-03-01 10:37] LABS: BUN Creatinine Ratio 19.2 (10-20); Calcium 8.5 mg/dl (8.6-10.3); Est GFR (African American) 63.5 ml/min; Est GFR (Non-African American) 54.8 ml/min; Potassium 4.4 mmol/L (3.5-5.1)
[2024-03-01] MEDS: COLCHICINE 0.6 MG TAB PO SCH (11:32)
[2024-03-01] MEDS: CALCIUM CARBONATE 500 MG CHEWABLE TAB PO PRN (11:34)
[2024-03-01] MEDS: ENZALUTAMIDE PO SCH (12:11)
[2024-03-01] MEDS: ENZALUTAMIDE PO ONE (13:21)
--- NOTE | 2024-03-01 14:18 | Hospitalist Progress Note ---
Date of Service March 01, 2024 Assessment & Plan (1) Gout flare: Plan: Right foot. Continue colchicine and prednisone taper. Discontinue allopurinol temporarily. Naprosyn also discontinued since he is on prednisone. (2) Ambulatory dysfunction: Plan: Due to acute gout right foot. OT and PT while hospitalized. (3) Prostate cancer metastatic to bone: Plan: Stable. Continue Xtandi (4) Type 2 DM with CKD stage 3 and hypertension: Plan: ADA diet. Sliding scale insulin coverage. Basal insulin therapy. Glucose will likely be elevated while on prednisone. (5) Ischemic cardiomyopathy: Plan: Stable. Continue Imdur, spironolactone, and lasix (6) CAD (coronary artery disease): Plan: Stable. Continue current medical management (7) Atrial fibrillation, permanent: Plan: Stable. Continue Pradaxa and carvedilol for rate control Plan Probable discharge to home tomorrow, March 02 Admission and Anticipated Discharge Date Admission Date: February 29, 2024 Subjective Alert and oriented. No distress. Clinical exam is consistent with acute gout involving the right foot despite the normal uric acid level. Allopurinol has been discontinued. He is now on colchicine 3 times daily along with a prednisone tapering dose starting at 10 mg 3 times a day. Naprosyn has been discontinued. I suspect he will be able to go home tomorrow, March 02 Review of Systems 2 Review of Systems: Constitutional-no fever or chills ENT-no blurred vision, no double vision, no epistaxis, no sore throat Respiratory-no cough, no wheezing, no shortness of breath Cardiac-no palpitations, no chest pain, no syncope GI-no nausea, vomiting, diarrhea, melena, hematochezia -no urinary retention, no urinary incontinence, no dysuria, no hematuria Musculoskeletal-no joint pain, no muscle tenderness. Right foot pain Skin-no bruising, no rashes, no pruritus Neuro-no isolated weakness, no paresthesia Psych-no depression, no anxiety Physical Exam 2 Physical Exam: General-alert and oriented x3, no fever, no chills HEENT-head atraumatic and normocephalic, pupils equal and reactive to light, extraocular muscles intact Neck-no lymphadenopathy or thyromegaly, trachea midline Chest-clear to auscultation. No rales wheezing or rhonchi Cardiac-irregular rhythm. Controlled rate. Normal S1 and S2 Abdomen-normal bowel sounds, nontender, no hepatosplenomegaly Extremities-no cyanosis, clubbing, or edema. Right foot mildly edematous with erythema along the medial aspect and tenderness to palpation Neuro-cranial nerves II through XII intact, motor and sensory function within normal limits, strength symmetrical, no focal deficits Psych-normal affect, normal mood Results & Data Results & Data Vital Signs (Past 12 Hours) Vital Signs Temp Pulse Resp BP Pulse Ox O2 Del Method 03/01/24 07:35 36.3 C L 78 18 114/69 97 Room Air Laboratory Results 02/29/24 12:43 03/01/24 09:31 PG Care Time/CCT Total # of Minutes Spent Total Time Spent with Patient: Total time spent is greater than 50% in coordination of care (as documented) at patient's floor/unit and/or counseling patient: Coding Level of Care Code 01006 SUB INP/OBS CARE 3/50MIN Diagnoses Gout flare M10.9 Ambulatory dysfunction R26.2 Prostate cancer metastatic to bone C61; C79.51 Type 2 DM with CKD stage 3 and hypertension E11.22; I12.9; N18.3 Ischemic cardiomyopathy I25.5 Coronary artery disease involving [place] coronary artery of [place] heart without angina pectoris I25.10 Coronary Disease-Associated Artery/Lesion type: [place] artery [place] vs. transplanted heart: [place] heart Associated angina: without angina Atrial fibrillation, permanent I48.21 (6) CAD (coronary artery disease) Coronary Disease-Associated Artery/Lesion type: [place] artery [place] vs. transplanted heart: [place] heart Associated angina: without angina Qualified Code(s): I25.10 - Atherosclerotic heart disease of [place] coronary artery without angina pectoris
[2024-03-02] MEDS: ENZALUTAMIDE PO SCH (08:16)
[2024-03-02 08:30] LABS: BUN Creatinine Ratio 25.2 (10-20); Calcium 7.9 mg/dl (8.6-10.3); Creatinine Clr Calc Pharmacy 47.8 ml/min; Est GFR (African American) 61.7 ml/min; Est GFR (Non-African American) 53.2 ml/min; Potassium 4.4 mmol/L (3.5-5.1)
--- NOTE | 2024-03-02 12:28 | Discharge Summary ---
Date of Service March 02, 2024 Admission HPI Per Admitting Provider James is an 83 year old male with a PMH significant for afib (on Pradaxa), DMII, stage 3 CKD, colon cancern S/P LAR in 2013, prostate cancer with metastases to the bone (on Xtandi), CAD, ischemic cardiomyopathy, S/P Bi ventricular ICD placement, S/P pacemaker placement and ICD removal at patient's request, HFrEF (LVEF of 30-35%), severe pulmonary HTN, and BPH, who presented to the [facility] ED on 02/29/24 with complaints of right foot pain. He remained stable in the ED. Labs were significant for an ESR of 66, CRP of 9.5, glucose of 333, with procal, uric acid level, and WBC WNL. Xray of the right foot was read as "1. Soft tissue edema with no acute bony abnormality identified. 2. Osteopenia and degenerative change as above.". Venous doppler of the RLE and CXR were read as negative for acute findings. The patient was initially given 4 mg IV morphine for pain thought to be due to a gout flare. Patient was unable to safely ambulate while in the ED and lives alone. We were asked to admit the patient for ambulatory dysfunction due to right foot pain. At the time of the exam the patient was sitting on the side of his bed in no acute distress, history was obtained from the patient and his Niece (Tracy Hines [phone]) who we called during the exam. They explain that the patient was seen by his Train Dispatcher approximately 1 month ago for right foot pain/swelling. The patient's niece confirms that the patient was started on both Allopurinol and a 10 day course of Keflex as they were concerned for both gout flare and cellulitis. The patient completed the course of Keflex and the cellulitis resolved. However, he has had ongoing pain/swelling in the right foot and now moving into the right knee. He has been having ongoing ambulatory dysfunction due to pain and swelling. The patient explains that his glucose is up because he took a lower dose of his lantus this am to prevent hypoglycemia since he was coming to the ED. He and his Niece confirm that the patient is a DNR/DNI. Please refer to Dr. Ko's attestation for any changes to the treatment plan Principal Diagnosis Acute gout right foot, ambulatory dysfunction Discharge Exam General-alert and oriented x3, no fever, no chills HEENT-head atraumatic and normocephalic, pupils equal and reactive to light, extraocular muscles intact Neck-no lymphadenopathy or thyromegaly, trachea midline Chest-clear to auscultation. No rales wheezing or rhonchi Cardiac-irregular rhythm. Controlled rate. Normal S1 and S2 Abdomen-normal bowel sounds, nontender, no hepatosplenomegaly Extremities-no cyanosis, clubbing, or edema. Right foot mildly edematous after walking but he is able to ambulate. Erythema has resolved. Neuro-cranial nerves II through XII intact, motor and sensory function within normal limits, strength symmetrical, no focal deficits Psych-normal affect, normal mood Discharge Data Allergies Allergy/AdvReac Type Severity Reaction Status Date / Time amiodarone AdvReac Unknown NIGHTMAR[place] Verified 02/29/24 17:31 AND AWAKEN WITH CHEST POUNDING Consultations 02/29/24 15:31 ED Decision to Admit Stat Ordered Studies 02/29/24 12:28 US venous doppler LE RT Stat Hospital Course (1) Gout flare: Right foot. Continue colchicine and prednisone taper at discharge. Discontinue allopurinol temporarily. Naprosyn also discontinued since he is on prednisone. (2) Ambulatory dysfunction: Due to acute gout right foot. OT and PT while hospitalized. (3) Prostate cancer metastatic to bone: Stable. Continue Xtandi (4) Type 2 DM with CKD stage 3 and hypertension: ADA diet. Sliding scale insulin coverage. Basal insulin therapy. Glucose will likely be elevated while on prednisone. (5) Ischemic cardiomyopathy: Stable. Continue Imdur, spironolactone, and lasix (6) CAD (coronary artery disease): Stable. Continue current medical management (7) Atrial fibrillation, permanent: Stable. Continue Pradaxa and carvedilol for rate control Plan Home today, March 02, with home health services Total Time Total Time Spent Total Time Spent (In Minutes): 45-minute Discharge Plan Discharge Items Patient Disposition: Home - Home Health Services Reason For Visit: RIGHT FOOT PAIN Discharge Diagnosis: Acute gout right foot, ambulatory dysfunction Activity: Resume your previous activity Non-emergency contact: Primary Care Provider Call non-emergency contact if: your symptoms worsen Follow-up/Referrals: Jason Taveras, [Primary Care Provider] - Diet: Carb Consistent or DM2 and Heart Healthy Addtl Attending Provider Instructions: Take colchicine twice daily until gout symptoms are completely resolved. Allopurinol remains on hold until gout symptoms are completely resolved. Take prednisone in a tapering dose fashion as directed. Pending Studies at Discharge: No Stand-Alone Forms: My [facility], Smoking Cessation Medications and DC Order Prescriptions: New prednisone 10 mg Tablet See Rx Instructions .ROUTE .COMPLEX Qty: 12 0RF Rx Instructions: 10 mg orally 3 times a day for 2 days, then 10 mg twice a day for 2 days, then 10 mg once a day for 2 days, then stop colchicine [Colcrys] 0.6 mg Tablet 0.6 mg PO BID Qty: 20 0RF Continued psyllium husk [Metamucil] 0.4 gram capsule 0.4 g PO DAILY PRN (Reason: Constipation) Xtandi 40 mg capsule 160 mg PO DAILY calcitriol 0.5 mcg capsule 0.5 mcg PO DAILY Qty: 90 1RF calcium carbonate 600 mg calcium (1,500 mg) tablet 600 mg PO DAILY Qty: 1 0RF lisinopril 5 mg tablet 2.5 mg PO DAILY Rx Instructions: PER [facility] potassium chloride [Klor-Con M20] 20 mEq tablet,ER particles/crystals 20 meq PO BID Hold Instructions: Starting spironolactone [facility]23 dabigatran etexilate 150 mg capsule 150 mg PO BID Rx Instructions: [facility] 11/09/23 ferrous sulfate [Iron (ferrous sulfate)] 325 mg (65 mg iron) tablet 325 mg PO DAILY Rx Instructions: [facility] 11/09/23 nitroglycerin [Nitrostat] 0.4 mg tablet, sublingual 0.4 mg Sublingual UD Rx Instructions: [facility] call 11/11/23- Pt does not have this. Should he? and if so please RX. famotidine 40 mg tablet 40 mg PO BID PRN (Reason: GERD) Qty: 60 11RF spironolactone 25 mg tablet 25 mg PO DAILY Qty: 90 3RF atorvastatin 80 mg Tablet 80 mg PO DAILY carvedilol 25 mg Tablet 25 mg PO BID furosemide [Lasix] 80 mg Tablet 80 mg PO DAILY finasteride 5 mg Tablet 5 mg PO DAILY insulin aspart U-100 [Novolog U-100 Insulin aspart] 100 unit/mL solution See Rx Instructions SUBCUT TID PRN (Reason: sliding scale) Rx Instructions: inject with each meal TDD 70 units subcut three times a day PRN; isosorbide mononitrate 30 mg tablet extended release 24 hr 60 mg PO DAILY insulin glargine [Lantus U-100 Insulin] 100 unit/mL solution 35 unit SUBCUT HS Rx Instructions: PER ME folic acid 1 mg Tablet 1 mg PO DAILY dabigatran etexilate 150 mg Capsule 150 mg PO Q12 Rx Instructions: PER [facility] Discontinued allopurinol 100 mg tablet 100 mg PO DAILY Admission Data Admit Date/Time: 02/29/24 15:48 Attending Provider: Erickson Hunter Admit Provider: Scottie Ko Primary Care Provider: Jason Taveras Other Providers: Scottie Ko; [facility]; [place] Coding Level of Care Code 77396 INP/OBS DISCH >30 MIN Diagnoses Gout flare M10.9 Gout etiology: unspecified cause Gout site: foot Laterality: right Ambulatory dysfunction R26.2 Prostate cancer metastatic to bone C61; C79.51 Type 2 DM with CKD stage 3 and hypertension E11.22; I12.9; N18.3 Ischemic cardiomyopathy I25.5 Coronary artery disease involving [place] coronary artery of [place] heart without angina pectoris I25.10 Associated angina: without angina Coronary Disease-Associated Artery/Lesion type: [place] artery [place] vs. transplanted heart: [place] heart Atrial fibrillation, permanent I48.21
--- NOTE | 2024-03-03 00:50 | Electrocardiogram Report ---
Test Reason : Blood Pressure : / mmHG Vent. Rate : 082 BPM Atrial Rate : 060 BPM P-R Int : 000 ms QRS Dur : 148 ms QT Int : 460 ms P-R-T Axes : 000 205 099 degrees QTc Int : 537 ms Ventricular-paced rhythm with ocassional AV pacing Abnormal ECG When compared with ECG of 25-OCT-2023 15:18, Vent. rate has increased BY 20 BPM Confirmed by Anand Ritchie ([id number]) on 03/03/2024 12:50:16 AM Referred By: REFERRED SELF Confirmed By:Anand Ritchie
== END 2024-03-02 15:50 | disposition home health service (06) ==
LOC: ED 12:00 → EDINP 12:00 → SUATTDRO 15:48 → 3N 20:45